=== PATIENT | male | born 1950 | race African-American/Black ===

== ENCOUNTER 2023-07-24 12:15 | Emergency (ER) | payer MEDICARE, OTHER ==
--- NOTE | 2023-07-24 12:30 | ED Physician Documentation ---
History of Present Illness - Stated complaint Stated Complaint: RT LEG PX - Additonal information Additional information: He injects his thigh each month with vitamin B12. After the last injection Friday evening he has noticed a lump and some swelling around the injection site. He points to an injection site that is on the medial inner thigh and the fatty tissue not within the muscle body of the quadriceps. No history of similar in the past. No fevers, erythema drainage or fluctuance. Review of Systems Skin: reports: Lesions PD ED PE EXPANDED - Extremities Extremities: Right thigh (Superficial area of bruising without erythema induration fluctuance or drainage on the right upper inner thigh within the subcutaneous tissue. 2+ femoral pulse. No associated lymphadenopathy on palpation.) PD Medical Decision Making - ED course Complexity details: d/w patient ED course: He has been injecting B12 monthly into his lower leg. His last injection appeared to be within the fatty subcutaneous tissue of the inner thigh and not the quadriceps muscle. However this does show some superficial bruising and no evidence of cellulitis or abscess development. We discussed the appropriate place for intramuscular injections in the future moving forward. Routine conservative care and usual emergent return precautions for any concerns of infection were discussed. Departure - Departure Disposition: 01 Home, Self Care Clinical Impression: Traumatic ecchymosis of right thigh Qualifiers: Encounter type: initial encounter Qualified Code(s): S70.11XA - Contusion of right thigh, initial encounter Condition: Stable Record reviewed to determine appropriate education?: Yes Comments: There is no blood clot you injected your B12 shot into the fatty tissue of your thigh. What you now have is some superficial bruising. There is no specific treatment needed for this and will simply get better over the next week or so. When you do the injections in the future make sure that you are injecting within the muscle body of the quadriceps. Return to the ER if you develop any significant redness, swelling around the bruising, fevers milky drainage or any red streaking.
[2023-07-24 12:42] VITALS: BP 138/92; O2SAT 100
== END 2023-07-24 12:37 | disposition home or self-care (01) ==
LOC: ED 12:15
DX: S70.11XA Contusion of right thigh, initial encounter (principal); X58.XXXA Exposure to other specified factors, initial encounter
CPT/HCPCS: 99281; 99283

== ENCOUNTER 2023-08-14 01:02 | Emergency (ER) | payer MEDICARE, OTHER ==
--- NOTE | 2023-08-14 01:21 | ED Physician Documentation ---
PD HPI CHEST PAIN - Stated complaint Stated Complaint: SOA/CHEST HEAVINESS - Chief complaint Chief Complaint: Cardiac - History obtained from History obtained from: Patient - Additional information Additional information: HPI from patient. Patient is visiting family locally having flown in from [place]. He is staying in a hotel. At approximately 3 PM today, he developed a sore throat. Approximately 1 hour [employer], he laid down to try to sleep and began to experience dyspnea. He denies cough. He denies history of similar symptoms. He denies chest pain. He tells me that he feels better since leaving the hotel to come to the ED Review of Systems Constitutional: denies: Fever, Chills, Sweats Throat: reports: Sore throat Cardiac: denies: Chest pain / pressure, Palpitations Respiratory: reports: Dyspnea. denies: Cough PD PAST MEDICAL HISTORY - Past Medical History Past Medical History: Yes Cardiovascular: Hypertension, High cholesterol : Benign prostate hypertrophy - Past Surgical History Past Surgical History: No - Present Medications Home Medications: Ambulatory Orders Medication Instructions Recorded Confirmed Amlodipine Besylate [Norvasc] 10 mg PO DAILY 08/14/23 08/14/23 Aspirin Chewable [St Darrel 81 mg PO DAILY 08/14/23 08/14/23 Aspirin] Cyanocobalamin [Vitamin B-12] 1,000 mcg IM 08/14/23 Dextran 70/Hypromellose [Genteal 1 drops EACHEYE QID 08/14/23 08/14/23 Tears 0.1%-0.3% Drop] Folic Acid 1 mg PO DAILY 08/14/23 08/14/23 Metoprolol Tartrate [Lopressor] 12.5 mg PO BID 08/14/23 08/14/23 Pravastatin [Pravachol] 40 mg PO DAILY 08/14/23 08/14/23 Simethicone [Gas Relief] 80 mg PO QID 08/14/23 08/14/23 Tamsulosin HCl [Flomax] 1 cap PO QPM 08/14/23 08/14/23 allopurinoL [Zyloprim] 100 mg PO DAILY 08/14/23 08/14/23 - Allergies Allergies/Adverse Reactions: Allergies Allergy/AdvReac Type Severity Reaction Status Date / Time Iodinated Contrast Media Allergy Anaphylaxis Verified 08/14/23 01:30 - Social History Does the pt smoke?: No Smoking Status: Never smoker Does the pt drink ETOH?: No Does the pt have substance abuse?: No - Immunizations Immunizations are current?: Yes - POLST Patient has POLST: No PD ED PE NORMAL - Vitals Vital signs reviewed: Yes - General General: Alert and oriented X 3, No acute distress, Well developed/nourished - HEENT HEENT: Pharynx benign - Neck Neck: Supple, no meningeal sign - Cardiac Cardiac: RRR, No murmur - Respiratory Respiratory: No respiratory distress, Clear bilaterally Results - Vitals Vitals: Oxygen O2 Source Room air - EKG (time done) No standard instances EKG releavant findings:: EKG personally interpreted by author of this note. Relevant findings are: Rate: Rate (enter#) (90) Rhythm: NSR Dix: LAD Intervals: Normal IN, RBBB QRS: Normal Ischemia: Normal ST segments - Labs Labs: Microbiology 08/14/23 02:45 Group A Strep Throat Culture - Final Throat Proteus Mirabilis Laboratory Tests 08/14/23 08/14/23 08/14/23 01:25 01:25 02:45 WBC 5.5 RBC 4.92 Hgb 14.1 Hct 42.3 MCV 86.0 MCH 28.7 MCHC 33.3 RDW 13.2 Plt Count 189 MPV 10.3 Neut # (Auto) 3.3 Lymph # (Auto) 1.5 Clinch # (Auto) 0.5 Eos # (Auto) 0.2 Baso # (Auto) 0.1 Absolute Nucleated RBC 0.00 Nucleated RBC % 0.0 Sodium 140 Potassium 3.9 Chloride 105 Carbon Dioxide 30 Anion Gap 5.0 L BUN 14 Creatinine 1.4 H Estimated GFR (MDRD) 60 L Glucose 117 H Calcium 9.2 Total Bilirubin 0.4 AST 19 ALT 17 Alkaline Phosphatase 58 Troponin I High Sens 3.9 Total Protein 7.8 Albumin 4.3 Globulin 3.5 Albumin/Globulin Ratio 1.2 Lipase 18 Nasal Adenovirus (PCR) Nasal B. parapertussis DNA (PCR) Nasal Coronavir 229E PCR Nasal Coronavir HKU1 PCR Nasal Coronavir NL63 PCR Nasal Coronavir OC43 PCR Nasal Enterovir/Rhinovir PCR Nasal Influenza B PCR Nasal Influenza A PCR Nasal Parainfluen 1 PCR Nasal Parainfluen 2 PCR Nasal Parainfluen 3 PCR Nasal Parainfluen 4 PCR Nasal RSV (PCR) Nasal B.pertussis DNA PCR Nasal C.pneumoniae (PCR) Rodriguez Human Metapneumo PCR Nasal M.pneumoniae (PCR) Nasal SARS-CoV-2 (PCR) Group A Strep Rapid Negative 08/14/23 02:45 WBC RBC Hgb Hct MCV MCH MCHC RDW Plt Count MPV Neut # (Auto) Lymph # (Auto) Clinch # (Auto) Eos # (Auto) Baso # (Auto) Absolute Nucleated RBC Nucleated RBC % Sodium Potassium Chloride Carbon Dioxide Anion Gap BUN Creatinine Estimated GFR (MDRD) Glucose Calcium Total Bilirubin AST ALT Alkaline Phosphatase Troponin I High Sens Total Protein Albumin Globulin Albumin/Globulin Ratio Lipase Nasal Adenovirus (PCR) NOT DETECTED Nasal B. parapertussis DNA (PCR) NOT DETECTED Nasal Coronavir 229E PCR NOT DETECTED Nasal Coronavir HKU1 PCR NOT DETECTED Nasal Coronavir NL63 PCR NOT DETECTED Nasal Coronavir OC43 PCR NOT DETECTED Nasal Enterovir/Rhinovir PCR NOT DETECTED Nasal Influenza B PCR NOT DETECTED Nasal Influenza A PCR NOT DETECTED Nasal Parainfluen 1 PCR NOT DETECTED Nasal Parainfluen 2 PCR NOT DETECTED Nasal Parainfluen 3 PCR NOT DETECTED Nasal Parainfluen 4 PCR NOT DETECTED Nasal RSV (PCR) NOT DETECTED Nasal B.pertussis DNA PCR NOT DETECTED Nasal C.pneumoniae (PCR) NOT DETECTED Rodriguez Human Metapneumo PCR NOT DETECTED Nasal M.pneumoniae (PCR) NOT DETECTED Nasal SARS-CoV-2 (PCR) DETECTED A Group A Strep Rapid - Rads (name of study) chest xray Relevant Findings:: Prelim report reviewed, See rad report PD Medical Decision Making - ED course Complexity details: reviewed results, re-evaluated patient, considered differential, d/w patient ED course: Patient presents with sore throat and shortness of breath. He did not notice the shortness of breath until he laid down to try to sleep. Although he denies chest pain, the etiology of his sensation of chest constriction and dyspnea, initially being unclear, is enough to prompt workup to include EKG, chest x-ray, and blood test with troponin. No concerning findings on EKG although right bundle branch block is noted. I have no previous EKG for comparative purposes. Unremarkable chest x-ray. Normal CBC, no concerning or diagnostic findings on ER abdominal panel. High- sensitivity troponin is normal. Rapid strep test is negative. Respiratory PCR panel is positive for COVID; this is the likely etiology for his symptoms. Patient's age puts him at increased risk for severe disease, and thus I recommended Paxlovid and he agrees with this. I advised him to stop his tamsulosin until he is completed the 5-day course of Paxlovid, as there is potential for severe interaction. Departure - Departure Disposition: 01 Home, Self Care Clinical Impression: COVID-19 Condition: Good Instructions: ED Viral Syndrome Comments: There are no concerning findings on tonight's blood tests, chest x-ray, EKG. Your strep test was negative. However, you did test positive for COVID. You are provided with Paxlovid (antiviral medication that can help reduce the severity and duration of COVID symptoms). Take the Paxlovid as per the instructions in the kit provided. IT IS VERY IMPORTANT THAT YOU STOP TAKING YOUR TAMSULOSIN (FLOMAX) UNTIL THE DAY AFTER YOU HAVE COMPLETED THE 5-DAY COURSE OF PAXLOVID. The Paxlovid has a potential interaction with tamsulosin that can cause dangerously low blood pressure. Regarding length of isolation recommendation, Google "CDC isolation" and then click on the link to "Isolation and Precautions for People with COVID-19 - CDC". This will have useful information for you as well as household contacts. There is a calculator on the page that will determine when you can end isolation. Forms: PCP List Discharge Date/Time: 08/14/23 05:25
[2023-08-14 01:30] LABS: BASOPHILS # (AUTO) 0.1 10^3/uL (0.0-0.1); BASOPHILS % (AUTO) 0.9 %; EOSINOPHILS # (AUTO) 0.2 10^3/uL (0.0-0.7); EOSINOPHILS % (AUTO) 3.1 %; HCT - HEMATOCRIT 42.3 % (42.0-52.0); HGB - HEMOGLOBIN 14.1 g/dL (14.0-18.0); LYMPHOCYTES # (AUTO) 1.5 10^3/uL (1.5-3.5); MEAN CORPUSCULAR HEMOGLOBIN 28.7 pg (27.0-31.0); MEAN CORPUSCULAR HGB CONC 33.3 g/dL (32.0-36.0); MEAN PLATELET VOLUME 10.3 fL (7.4-11.4); MONOCYTES # (AUTO) 0.5 10^3/uL (0.0-1.0); MONOCYTES % (AUTO) 8.4 %; NEUTROPHILS # (AUTO) 3.3 10^3/uL (1.5-6.6); NEUTROPHILS % (AUTO) 59.6 %; PLT - PLATELET COUNT 189 10^3/uL (130-450); RED BLOOD COUNT 4.92 10^6/uL (4.70-6.10); RED CELL DISTRIBUTION WIDTH 13.2 % (12.0-15.0); WHITE BLOOD COUNT 5.5 x10^3/uL (4.8-10.8)
[2023-08-14 01:50] LABS: ALBUMIN 4.3 g/dL (3.2-5.5); ALBUMIN/GLOBULIN RATIO 1.2 (1.0-2.2); BILIRUBIN,TOTAL 0.4 mg/dL (0.2-1.0); CALCIUM 9.2 mg/dL (8.5-10.3); CREATININE 1.4 mg/dL (0.6-1.3); POTASSIUM 3.9 mmol/L (3.5-4.5); TOTAL PROTEIN 7.8 g/dL (6.4-8.9); TROPONIN I HIGH SENSITIVITY 3.9 ng/L (2.3-19.7)
[2023-08-14 03:01] LABS: RAPID STREP SCREEN Negative (Negative)
[2023-08-14 03:50] LABS: CORONAVIRUS 229E-RESP PCR NOT DETECTED; CORONAVIRUS HKU1-RESP PCR NOT DETECTED; CORONAVIRUS NL63-RESP PCR NOT DETECTED; CORONAVIRUS OC43-RESP PCR NOT DETECTED; SARS-CoV-2 -RESP PCR PANEL DETECTED
[2023-08-14 03:51] LABS: B. PARAPERTUSSIS- RESP PCR PAN NOT DETECTED; B. PERTUSSIS- RESP PCR PANEL NOT DETECTED; C. PNEUMONIAE- RESP PCR PANEL NOT DETECTED; HUMAN METAPNEUMOVIRUS NOT DETECTED; INFLUENZA A- RESP PCR PANEL NOT DETECTED; INFLUENZA B - RESP PCR PANEL NOT DETECTED; M. PNEUMONIAE- RESP PCR PANEL NOT DETECTED; PARAINFLUENZA VIRUS 1 NOT DETECTED; PARAINFLUENZA VIRUS 2 NOT DETECTED; PARAINFLUENZA VIRUS 3 NOT DETECTED; PARAINFLUENZA VIRUS 4 NOT DETECTED; RHINOVIRUS/ENTEROVIRUS NOT DETECTED; RSV- RESP PCR PANEL NOT DETECTED
[2023-08-14] MEDS ORDERED: NIRMATRELVIR/RITONAVIR PREPACK PO STA (05:01)
[2023-08-14 05:43] VITALS: BP 140/93; O2SAT 97
--- NOTE | 2023-08-14 08:22 | XRAY Report ---
PROCEDURE: Chest 1 View X-Ray INDICATIONS: Chest pain TECHNIQUE: One view of the chest was acquired. COMPARISON: None. FINDINGS: Surgical changes and devices: None. Lungs and pleura: No pleural effusions or pneumothorax. Lungs are clear. Mediastinum: Mediastinal contours appear normal. Heart size is normal. Bones and chest wall: No suspicious bony lesions. Overlying soft tissues appear unremarkable. IMPRESSION: No acute cardiopulmonary process. Findings are concordant with preliminary interpretation provided by [facility]. Reviewed by: Ian Dalton MD on 08/14/2023 8:20 AM PST Approved by: Ian Dalton MD on 08/14/2023 8:20 AM PST Station ID: [id number]
== END 2023-08-14 05:25 | disposition home or self-care (01) ==
LOC: ED 01:02
DX: U07.1 COVID-19 (principal); I10 Essential (primary) hypertension
CPT/HCPCS: 36415; 71045; 80053; 83690; 84484; 85025; 87070; 87077; 87430; 87633; 93005; 99283; 99284; J3490